=== PATIENT | male | born 1935 | race Asian ===

== ENCOUNTER 2023-04-15 17:36 | Inpatient (IN) | payer OTHER ==
[~2023-04-15] VITALS: Ht 165.1 cm; Wt 61.7 kg
[2023-04-15 17:43] VITALS: BP 137/95
--- NOTE | 2023-04-15 17:58 | NUR ---
Patient ambulated to bed 09 with steady/even gait.
--- NOTE | 2023-04-15 18:00 | NUR ---
87 y/o M BIB self from home c/o right head, right hip and leg pain s/p fall on 04/11/23. Patient A&Ox4, ambulatory, states ground level fall while standing up from bed and slipping on right foot. Pt states striking head to wooden frame. Denies blood thinners, LOC. Patient states head pain 9/10, sharp/intermittent, non-radiating. Worsens with coughing/sudden head movements. Denies OTC meds, dizziness, nausea, vomiting, chest pain. property assessment monitor on place. Bed locked in lowest position, side rails x 1. ALLERGY: IBUPROFEN PMH: HTN, HDL MEDS: ATENOLOL, LOVASTATIN
--- NOTE | 2023-04-15 19:35 | NUR ---
Report and transfer of care given to DARVIN Klein.
--- NOTE | 2023-04-15 19:49 | NUR ---
PATIENT UPDATED ON PLAN OF CARE AND PENDING DISCHARGE. UP AMBULATING TO RESTROOM WITHOUT ASSISTANCE,
[2023-04-15] MEDS ORDERED: ACET-10509 PO (21:01)
--- NOTE | 2023-04-15 21:25 | NUR ---
MD SPOKE WITH PATIENT NEUROLOGIST WHO STRONGLY ADVISED THE PATIENT TO REMAIN AT HOSPITAL TO BE ADMIT. MD DISCUSS WITH PATIENT WHO DECIDED TO REMAIN IN ER. CARES CONTINUE.
[2023-04-15 21:57] LABS: BASOPHILS % (AUTO) 0.7 % (0.0-2.0); EOSINOPHILS # (AUTO) 0.3 K/uL (0-0.4); EOSINOPHILS % (AUTO) 4.9 % (0.0-4.0); HEMATOCRIT 37.7 % (36-52); HEMOGLOBIN 12.4 g/dL (12.0-18.0); LYMPHOCYTES # (AUTO) 1.1 K/uL (2.0-11.5); LYMPHOCYTES % (AUTO) 18.9 % (20.5-51.1); MEAN CORPUSCULAR HEMOGLOBIN 29 pg (27-31); MEAN CORPUSCULAR HGB CONC 33 g/dL (33-37); MEAN CORPUSCULAR VOLUME 89.3 fL (80-94); MONOCYTES # (AUTO) 0.6 K/uL (0.8-1.0); MONOCYTES % (AUTO) 10.1 % (1.7-9.3); NEUTROPHILS # (AUTO) 3.7 K/uL (1.8-7.7); NEUTROPHILS % (AUTO) 65.4 % (42.2-75.2); PLATELET COUNT (AUTO) 193 K/uL (140-450); RED BLOOD CELL COUNT(AUTO) 4.22 MIL/uL (4.20-6.10); RED CELL DISTRIBUTION WIDTH 14.4 % (11.6-13.7); WHITE BLOOD COUNT (AUTO) 5.6 K/uL (4.8-10.8)
--- NOTE | 2023-04-15 22:06 | NUR ---
PT AMBULATING TO RESTROOM UNASSISTED
[2023-04-15 22:13] LABS: ALBUMIN 3.5 g/dL (3.4-5.0); ANION GAP 11.3 (8-16); ASPARTATE AMINOTRANSFERASE 29 U/L (15-37); CARBON DIOXIDE 28.8 mmol/L (21-32); CHLORIDE 104 mmol/L (98-107); GLUCOSE 104 mg/dL (74-106); POTASSIUM 4.1 mmol/L (3.5-5.1); SODIUM SERUM 140 mmol/L (136-145); TOTAL BILIRUBIN 0.3 mg/dL (0.0-1.0); UREA NITROGEN, BLOOD 23 mg/dL (7-18)
--- NOTE | 2023-04-15 22:20 | NUR ---
20G PLACED IN LAC
--- NOTE | 2023-04-15 23:18 | NUR ---
PATIENT TO RADIOLOGY VIA [facility]
--- NOTE | 2023-04-15 23:27 | NUR ---
PATIENT BACK FROM CT
--- NOTE | 2023-04-16 02:48 | NUR ---
SPOKE TO CORPORATE QUALITY ENGINEER TOM ABOUT PATIENT CURRENT STATUS/ HX. PATIENT PENDING TRANSFER TO HIGHER LEVEL OF CARE.
--- NOTE | 2023-04-16 04:28 | NUR ---
PT SPEAKING WITH TELENEURO PHSYCIAN AT THIS TIME.
[2023-04-16] MEDS ORDERED: ZOLPIDEM 5 MG TAB PO PRN (04:55)
[2023-04-16] MEDS ORDERED: ONDANSETRON 4 MG/2 ML VIAL IM/IVP PRN (04:55)
[2023-04-16] MEDS ORDERED: DOCUSATE SODIUM 100 MG GELCAP PO PRN (04:55)
[2023-04-16] MEDS ORDERED: POTASSIUM CHLORIDE 10 MEQ TABER PO PRN (04:55)
[2023-04-16] MEDS ORDERED: guaiFENesin DM 200/20 MG-10 ML 10 ML UDC PO PRN (04:55)
[2023-04-16] MEDS ORDERED: HYDROcodone/APAP 7.5/325 MG 1 TAB PO PRN (04:55)
--- NOTE | 2023-04-16 05:23 | NUR ---
[facility]UITY OF CARE.
[2023-04-16 05:30] VITALS: BP 117/75
--- NOTE | 2023-04-16 05:30 | NUR ---
PT TRANSPORTED FROM ER VIA GURNEY. RECEIVED REPORT FROM DARVIN RITCHIE FOR CONTINUITY OF CARE/ PT A/A/O. AMBULATORY. ABLE TO MAKE NEEDS KNOWN. RESPIRATIONS EVEN AND UNLABORED ON RA. DENIES PAIN. ATTACHED TO WATER/WASTEWATER ENGINEER. V/S TAKEN AND WITHIN NORMAL LIMITS. MRSA SWAB DONE AND SENT TO LAB. NPO EXCEPT MEDS. PT AWARE. NPO SIGN IN PLACE. IV SITE ON LAC, 20G STARTED WITH NS AT 60ML/HR. PT ORIENTED TO ROOM, UNIT AND ROUTINE. POC DISCUSSED. CALL LIGHT WITHIN REACH. SAFETY PRECAUTIONS IN PLACE.
--- NOTE | 2023-04-16 05:30 | NUR ---
Patient's Plan of Care was discussed and reviewed with ZACHARY IBRAHIM:
[2023-04-16] MEDS: NACL 0.9% 1,000 ML IV SCH ×2 (05:40→21:51)
--- NOTE | 2023-04-16 07:10 | NUR ---
GAVE BEDSIDE REPORT TO DARVIN SLATER FOR CONTINUITY OF CARE. PT IS STABLE.
--- NOTE | 2023-04-16 07:30 | NUR ---
RECEIVED REPORT FROM ASSISTANT PARALEGAL NURSE, POC DISCUSSED. PT CURRENTLY RESTING WITH CHEST RISING AND FALLING. NO ACUTE S/S OF DISTRESS. ALL SAFETY MEASURES IN PLACE. CALL LIGHT WITHIN REACH.
[2023-04-16 08:00] VITALS: BP 158/72
[2023-04-16] MEDS: ASPIRIN 325 MG TAB PO SCH (09:16)
[2023-04-16] MEDS: PANTOPRAZOLE 40 MG TABEC PO SCH (09:17)
--- NOTE | 2023-04-16 09:41 | NUR ---
DAUGHTER CALLED IN TO GET A STATUS UPDATE ON HER FATHER. I OBTAINED VERBAL CONSENT FROM PT TO DISCUSS STATUS WITH DAUGHTER. DAUGHTER WILL CALL PT DIRECTLY ON HIS CELL PHONE.
[2023-04-16 12:00] VITALS: BP 154/80
--- NOTE | 2023-04-16 12:13 | NUR ---
PT SON CALLED IN FOR STATUS. OBTAINED PERMISSION FROM PT TO RELEASE INFO TO SON NAMED FORREST KAUFFMAN.
--- NOTE | 2023-04-16 14:49 | NUR ---
PT GETTING EEG COMPLETED AT THIS TIME, UNABLE TO TALK DURING PROCEDURE TO ANSWER QUESTIONS FOR MRI SCREENING. WILL FOLLOW UP.
[2023-04-16 16:00] VITALS: BP 129/70
--- NOTE | 2023-04-16 16:36 | NUR ---
Order received for the patient to have an MRI of the brain. rigger supervisor spoke with LOREN Willson at [email or web address] ([phone]), authorization for MRI given ([id number]) and for [facility] transport ([id number]). Clinical packet and MRi screening form faxed to [facility], phone [phone], fax [phone], waiting for call back to schedule. Transport arranged with [facility] ([phone]), on will call, LOGAN. Addendum: 04/16/23 at 4508 by Mona Matute CM MRI order changed to include cervical spine, without contrast, [facility] notified, per Lulu authorization number will remain the same. New orders faxed to [facility]. Addendum: 04/17/23 at 08 by Mona Matute CM rigger supervisor attempted to reach the Nuclear Med department at [facility], informed by ball rolling machine operator that they do not schedule MRI's on the weekends. Message left for Nuclear Med and Radiology at [facility] asking if they can do the MRI today, attempted to reach [place] to schedule MRI, ball rolling machine operator states he doesn't think MRI's are scheduled on weekends, unable to reach anyone in Nuclear Med or Radiology or to leave a message. Addendum: 04/18/23 at 1158 by Magali Ruggiero RN DC PLANNING: PER DR JENNINGS MRI GOT CANCELLED AND CAN BE DONE OUT PATIENT FAXED TO [facility]. [facility] TO FOLLOW
--- NOTE | 2023-04-16 17:03 | NUR ---
SPOKE WITH DR VILLEDA, STATED TO DC THE DUPLICATE EEG ORDER. ALSO STATED TO CHANGE THE MRI TO CERVICAL SPINE AND BRAIN WITHOUT CONTRAST. VETERINARY SURGERY TECHNICIAN MADE AWARE, TORB ORDER PLACED.
[2023-04-16 17:38] LABS: PROTHROMBIN TIME 10.2 secs (10.8-13.4)
[2023-04-16 17:40] LABS: BASOPHILS % (AUTO) 0.3 % (0.0-2.0); EOSINOPHILS # (AUTO) 0.2 K/uL (0-0.4); EOSINOPHILS % (AUTO) 3.6 % (0.0-4.0); HEMATOCRIT 37.2 % (36-52); HEMOGLOBIN 12.4 g/dL (12.0-18.0); LYMPHOCYTES # (AUTO) 0.6 K/uL (2.0-11.5); LYMPHOCYTES % (AUTO) 14.3 % (20.5-51.1); MEAN CORPUSCULAR HEMOGLOBIN 30 pg (27-31); MEAN CORPUSCULAR HGB CONC 33 g/dL (33-37); MEAN CORPUSCULAR VOLUME 88.9 fL (80-94); MONOCYTES # (AUTO) 0.5 K/uL (0.8-1.0); MONOCYTES % (AUTO) 11.1 % (1.7-9.3); NEUTROPHILS % (AUTO) 70.7 % (42.2-75.2); PLATELET COUNT (AUTO) 185 K/uL (140-450); RED BLOOD CELL COUNT(AUTO) 4.19 MIL/uL (4.20-6.10); RED CELL DISTRIBUTION WIDTH 14.6 % (11.6-13.7); WHITE BLOOD COUNT (AUTO) 4.3 K/uL (4.8-10.8)
[2023-04-16 17:52] LABS: CARBON DIOXIDE 27.2 mmol/L (21-32); CHLORIDE 105 mmol/L (98-107); CREATININE 1.1 mg/dL (0.6-1.3); GLUCOSE 109 mg/dL (74-106); POTASSIUM 4.2 mmol/L (3.5-5.1); SODIUM SERUM 141 mmol/L (136-145); UREA NITROGEN, BLOOD 19 mg/dL (7-18)
[2023-04-16 18:04] LABS: MAGNESIUM 2.2 mg/dL (1.8-2.4); PHOSPHORUS 4.2 mg/dL (2.5-4.9)
--- NOTE | 2023-04-16 19:20 | NUR ---
RECEIVED PT FROM MORNING SHIFT NURSE. PT IS AOX4, AMBULATORY, ABLE TO FOLLOW COMMANDS AND ABLE TO VERBALIZE NEEDS. PT IS ON ROOM AIR AND ON CARDIAC DIET. PT HAS IV ON LEFT AC GAUGE 22, RUNNING WITH NS AT 60ML/HR. PT SKIN IS INTACT. PT DENIES PAIN AT THIS TIME. NO S/S OF RESPIRATORY DISTRESS NOTED. ALL SAFETY MEASURES IMPLEMENTED. BED IN LOW POSITION, BED WHEELS ON LOCK AND CALL LIGHT WITHIN REACH.
[2023-04-16 20:00] VITALS: BP 119/69
--- NOTE | 2023-04-16 22:00 | NUR ---
ASSISTED PT TO BATHROOM AND TAUGHT PT HOW TO PULL OUT AND PLUG IN THE CORD OF IV PUMP. PT UNDERSTAND UNDERSTANDING. NO COMPLAIN OF PAIN. NO S/S OF RESPIRATORY DISTRESS NOTED. ALL SAFETY MEASURES IMPLEMENTED. BED IN LOW POSITION, BED WHEELS ON LOCK AND CALL LIGHT WITHIN REACH.
[2023-04-17] VITALS: BP 133/83
--- NOTE | 2023-04-17 | NUR ---
PT IS ON SLEEP. CHEST RISE AND FALL SYMMETRICALLY NOTED. RESPIRATION IS EVEN AND UNLABORED. ALL SAFETY MEASURES IMPLEMENTED. BED IN LOW POSITION, BED WHEELS ON LOCK AND CALL LIGHT WITHIN REACH.
--- NOTE | 2023-04-17 02:00 | NUR ---
CHECKED THE PT, STILL ON SLEEP. CHEST RISE AND FALL SYMMETRICALLY NOTED. RESPIRATION IS EVEN AND UNLABORED. ALL SAFETY MEASURES IMPLEMENTED. BED IN LOW POSITION, BED WHEELS ON LOCK AND CALL LIGHT WITHIN REACH.
[2023-04-17 04:02] VITALS: BP 155/77
--- NOTE | 2023-04-17 04:10 | NUR ---
PT WAS GIVEN WARM BLANKET PER PT REQUEST. NO COMPLAIN OF PAIN. NO S/S OF RESPIRATORY DISTRESS. ALL SAFETY MEASURES IMPLEMENTED. BED IN LOW POSITION, BED WHEELS ON LOCK AND CALL LIGHT WITHIN REACH.
[2023-04-17 05:35] LABS: BASOPHILS % (AUTO) 0.5 % (0.0-2.0); EOSINOPHILS # (AUTO) 0.3 K/uL (0-0.4); EOSINOPHILS % (AUTO) 5.5 % (0.0-4.0); HEMATOCRIT 35.5 % (36-52); HEMOGLOBIN 11.8 g/dL (12.0-18.0); LYMPHOCYTES # (AUTO) 0.6 K/uL (2.0-11.5); LYMPHOCYTES % (AUTO) 12.7 % (20.5-51.1); MEAN CORPUSCULAR HEMOGLOBIN 29 pg (27-31); MEAN CORPUSCULAR HGB CONC 33 g/dL (33-37); MEAN CORPUSCULAR VOLUME 88.5 fL (80-94); MONOCYTES # (AUTO) 0.4 K/uL (0.8-1.0); MONOCYTES % (AUTO) 8.4 % (1.7-9.3); NEUTROPHILS # (AUTO) 3.6 K/uL (1.8-7.7); NEUTROPHILS % (AUTO) 72.9 % (42.2-75.2); PLATELET COUNT (AUTO) 159 K/uL (140-450); RED BLOOD CELL COUNT(AUTO) 4.01 MIL/uL (4.20-6.10); RED CELL DISTRIBUTION WIDTH 14.3 % (11.6-13.7); WHITE BLOOD COUNT (AUTO) 4.9 K/uL (4.8-10.8)
[2023-04-17 05:55] LABS: ANION GAP 13.3 (8-16); CARBON DIOXIDE 26.4 mmol/L (21-32); CHLORIDE 107 mmol/L (98-107); CREATININE 0.8 mg/dL (0.6-1.3); GLUCOSE 115 mg/dL (74-106); POTASSIUM 3.7 mmol/L (3.5-5.1); SODIUM SERUM 143 mmol/L (136-145); UREA NITROGEN, BLOOD 20 mg/dL (7-18)
--- NOTE | 2023-04-17 07:10 | NUR ---
PT IS STABLE. ENDORSED PT TO MORNING SHIFT NURSE FOR CONTINUITY OF CARE.
--- NOTE | 2023-04-17 07:32 | NUR ---
RECEIVED REPORT FROM RECEIVING TEAM MEMBER NURSEROMINA. PT STABLE IN BED ON ROOM AIR WITH CHEST RISING AND FALLING. ALL NIGHT EVENTS AND CHANGES IN POC DISCUSSED. ALL SAFETY MEASURES IN PLACE, CALL LIGHT WITHIN REACH.
[2023-04-17 08:00] VITALS: BP 155/74
[2023-04-17] MEDS: ASPIRIN 325 MG TAB PO SCH (08:50)
[2023-04-17] MEDS: PANTOPRAZOLE 40 MG TABEC PO SCH (08:50)
[2023-04-17] MEDS: ACETAMINOPHEN 325 MG TAB PO PRN ×2 (08:50→20:19)
[2023-04-17 12:00] VITALS: BP 142/66
[2023-04-17] MEDS: NACL 0.9% 1,000 ML IV SCH (14:49)
[2023-04-17 16:00] VITALS: BP 126/66
--- NOTE | 2023-04-17 18:21 | NUR ---
ROUNDED ON PT, SITTING UP ON THE SIDE OF THE BED EATING DINNER. REPORTS ALL NEEDS ARE BEING MET. ALL SAFETY MEASURES IN PLACE. NO S/S OF ACUTE DISTRESS.
--- NOTE | 2023-04-17 19:30 | NUR ---
RECEIVED PT FROM DAY SHIFT NURSE. PT IS AOX4,SITTING ON THE EDGE OF BED. PT IS ON ROOM AIR. PT HAS IV ON LEFT AC GAUGE 22, RUNNING WITH NS AT 60ML/HR. . PT COMPLAINS OF MILD HEADACHE. NO S/SX OF RESPIRATORY DISTRESS NOTED. POC DISCUSSED.ALL SAFETY MEASURES IN PLACE.CALL LIGHT WITHIN REACH.WILL CONTINUE TO MONITOR.
[2023-04-17 20:00] VITALS: BP 109/61
--- NOTE | 2023-04-17 20:19 | NUR ---
PT COMPLAINED OF MILD HEADACHE. PRN TYLENOL GIVEN. WILL CONTINUE TO MONITOR.
[2023-04-18] VITALS: BP 165/62
[2023-04-18 04:00] VITALS: BP 171/86
[2023-04-18] MEDS: ACETAMINOPHEN 325 MG TAB PO PRN (05:11)
[2023-04-18 06:51] LABS: BASOPHILS % (AUTO) 0.3 % (0.0-2.0); EOSINOPHILS # (AUTO) 0.3 K/uL (0-0.4); EOSINOPHILS % (AUTO) 6.6 % (0.0-4.0); HEMATOCRIT 34.5 % (36-52); HEMOGLOBIN 11.4 g/dL (12.0-18.0); LYMPHOCYTES # (AUTO) 0.6 K/uL (2.0-11.5); LYMPHOCYTES % (AUTO) 15.3 % (20.5-51.1); MEAN CORPUSCULAR HEMOGLOBIN 30 pg (27-31); MEAN CORPUSCULAR HGB CONC 33 g/dL (33-37); MEAN CORPUSCULAR VOLUME 88.9 fL (80-94); MONOCYTES # (AUTO) 0.3 K/uL (0.8-1.0); MONOCYTES % (AUTO) 8.2 % (1.7-9.3); NEUTROPHILS # (AUTO) 2.8 K/uL (1.8-7.7); NEUTROPHILS % (AUTO) 69.6 % (42.2-75.2); PLATELET COUNT (AUTO) 169 K/uL (140-450); RED BLOOD CELL COUNT(AUTO) 3.88 MIL/uL (4.20-6.10); RED CELL DISTRIBUTION WIDTH 14.6 % (11.6-13.7)
[2023-04-18] MEDS: NACL 0.9% 1,000 ML IV SCH (06:55)
[2023-04-18 06:59] LABS: ANION GAP 12.2 (8-16); CARBON DIOXIDE 26.4 mmol/L (21-32); CHLORIDE 108 mmol/L (98-107); CREATININE 0.9 mg/dL (0.6-1.3); GLUCOSE 106 mg/dL (74-106); POTASSIUM 3.6 mmol/L (3.5-5.1); SODIUM SERUM 143 mmol/L (136-145); UREA NITROGEN, BLOOD 17 mg/dL (7-18)
[2023-04-18 07:09] LABS: CHOL/HDL RATIO 4.4 (1-4.5)
--- NOTE | 2023-04-18 07:15 | NUR ---
RECEIVED PT FROM [facility] NURSE PRACTITIONER FOR CONTINUITY OF CARE. ALERT AND ORIENTED X 4. RESP. EVEN AND UNLABORED. ON ROOM AIR. NOT ANY DISTRESS NOTED. CALL LIGHT KEPT WITHIN REACH. PT WILL MONITOR CLOSELY.
[2023-04-18 08:00] VITALS: BP 163/79
--- NOTE | 2023-04-18 08:05 | NUR ---
BLOOD PRESSURE 163/79. DR. TOTH NOTIFIED, NO NEW ORDER AT THIS TIME.
[2023-04-18] MEDS: PANTOPRAZOLE 40 MG TABEC PO SCH (08:17)
[2023-04-18] MEDS: ASPIRIN 325 MG TAB PO SCH (08:17)
--- NOTE | 2023-04-18 08:17 | NUR ---
SCHEDULED MEDICATIONS GIVEN. TOLERATED WELL.
--- NOTE | 2023-04-18 08:57 | NUR ---
PATIENT HAS BEEN SCREENED AND CATEGORIZED LOW NUTRITION RISK. PATIENT WILL BE SEEN WITHIN 7 DAYS OF ADMISSION. 04/23/23 REVIEWED BY SOFÍA COLON RD
[2023-04-18] MEDS ORDERED: NIFEdipine 30 MG TABER PO SCH (09:24)
--- NOTE | 2023-04-18 10:48 | NUR ---
ADALAT PO WAS GIVEN. TOLERATED WELL.
[2023-04-18 12:00] VITALS: BP 147/79
--- NOTE | 2023-04-18 12:35 | NUR ---
SEEN BY DR. JENNINGS.
[2023-04-18] MEDS ORDERED: ASPI-1822 PO ×2 (13:28→14:25)
--- NOTE | 2023-04-18 14:50 | NUR ---
PT LEFT. DISCHARGE TO HOME. AMBULATORY. ALERT AND VERBALLY RESPONSIVE. RESP. EVEN AND UNLABORED. SKIN INTACT. ID BAND AND IV REMOVED. DISCHARGED PAPERWORK SIGNED AND DISCUSS BY PT. NO C/O PAIN OR DISCOMFORT. REMAINS STABLE.
--- NOTE | 2023-04-19 08:36 | NUR ---
RECEIVED ORDER FOR PATIENT TO GET OUTPATIENT MRI OF THE [facility] FOR HOME SAFETY EVAL. RECEIVED CALL FROM ABEBE AT [facility], MRI WAS APPROVED FOR [facility] AND [facility] WAS THE AGENCY THAT IS ACCEPTING PATIENT.
[2023-04-19] MEDS ORDERED: atenoloL 25 MG TAB PO SCH (09:00)
== END 2023-04-18 14:50 | disposition home health service (06) | DRG 93 ==
LOC: MED 17:36 → MMU 04-16 04:56 → MTU 04-17 22:55
PROVIDERS: ADMIT Student in an Organized Health Care Education/Training Program; ATTEND Student in an Organized Health Care Education/Training Program
PROC: 4A00X4Z Measurement of Central Nervous Electrical Activity, External Approach (ICD-10-PCS; principal; 2023-04-16)
DX: G96.08 Other cranial cerebrospinal fluid leak (principal); I10 Essential (primary) hypertension; E78.00 Pure hypercholesterolemia, unspecified; E11.9 Type 2 diabetes mellitus without complications; Z20.822 Contact with and (suspected) exposure to COVID-19; Z88.1 Allergy status to other antibiotic agents; Z79.899 Other long term (current) drug therapy; Z79.1 Long term (current) use of non-steroidal anti-inflammatories (NSAID)
CPT/HCPCS: 36415; 70450; 72170; 80048; 80053; 83735; 84100; 84484; 85025; 85610; 85651; 85730; 87081; 93005; 95816; 99291; Q9967

== ENCOUNTER 2023-05-10 10:46 | Inpatient (IN) | payer OTHER ==
[~2023-05-10] VITALS: Ht 167.6 cm; Wt 59.4 kg
[~2023-05-10 10:46] MED LIST: ACET-10509 PO; ASPI-1822 PO
[2023-05-10] MEDS ORDERED: POLYETHYLENE GLYCOL 17 GM/PKT PO ONE (11:00)
[2023-05-10] MEDS ORDERED: SODIUM PHOSPHATE 118 ML ENEM RC ONE (11:00)
[2023-05-10] MEDS ORDERED: NACL 0.9% 1,000 ML IV ONE (11:00)
[2023-05-10] MEDS ORDERED: DOCUSATE SOD/SENNA 50/8.6 MG 1 TAB PO PRN (11:00)
[2023-05-10] MEDS ORDERED: MAGNESIUM HYDROXIDE 2400 MG/30 ML UDC PO ONE (11:00)
[2023-05-10 11:08] VITALS: BP 122/70
[2023-05-10] MEDS ORDERED: DOXY-690 PO (11:13)
[2023-05-10] MEDS ORDERED: METR-435 PO (11:13)
[2023-05-10 11:19] LABS: BASOPHILS % (AUTO) 0.3 % (0.0-2.0); EOSINOPHILS # (AUTO) 0.1 K/uL (0-0.4); EOSINOPHILS % (AUTO) 0.8 % (0.0-4.0); HEMATOCRIT 33.4 % (36-52); HEMOGLOBIN 10.9 g/dL (12.0-18.0); LYMPHOCYTES # (AUTO) 0.6 K/uL (2.0-11.5); LYMPHOCYTES % (AUTO) 7.6 % (20.5-51.1); MEAN CORPUSCULAR HEMOGLOBIN 29 pg (27-31); MEAN CORPUSCULAR HGB CONC 33 g/dL (33-37); MEAN CORPUSCULAR VOLUME 87.4 fL (80-94); MONOCYTES # (AUTO) 0.5 K/uL (0.8-1.0); MONOCYTES % (AUTO) 6.3 % (1.7-9.3); NEUTROPHILS # (AUTO) 6.9 K/uL (1.8-7.7); PLATELET COUNT (AUTO) 221 K/uL (140-450); RED BLOOD CELL COUNT(AUTO) 3.82 MIL/uL (4.20-6.10); RED CELL DISTRIBUTION WIDTH 13.8 % (11.6-13.7); WHITE BLOOD COUNT (AUTO) 8.2 K/uL (4.8-10.8)
--- NOTE | 2023-05-10 11:36 | NUR ---
UNABLE TO PROVIDE URINE AT THIS TIME, PT URINATED ON EMS GURNEY
--- NOTE | 2023-05-10 11:40 | NUR ---
87 Y/O MALE BIBA FROM HOME C/O WEAKNESS AND CONSTIPATION X4 DAYS. PER EMS PT HAS BEEN UNABLE TO WALK UP STAIRS FOR " A WHILE NOW", TODAY PT SLID DOWN HIS CHAIR AND STATED THAT THEY WERE HAVING A HARD TIME GETTING UP. PER PT HE HAS BEEN CONSTIPATED X4DAYS. NO MEDICATION TAKEN FOR CONSTIPATION PMH: HTN, HDL
--- NOTE | 2023-05-10 11:44 | NUR ---
PER DR JOHNSON, GIVE ENEMA AFTER CT SCAN
--- NOTE | 2023-05-10 11:45 | NUR ---
TAKEN TO CT VIA NIRANJAN
[2023-05-10 11:52] LABS: ALBUMIN 3.1 g/dL (3.4-5.0); ASPARTATE AMINOTRANSFERASE 35 U/L (15-37); CARBON DIOXIDE 26.9 mmol/L (21-32); CHLORIDE 100 mmol/L (98-107); CREATININE 0.8 mg/dL (0.6-1.3); GLUCOSE 111 mg/dL (74-106); LIPASE 76 U/L (73-393); POTASSIUM 3.9 mmol/L (3.5-5.1); SODIUM SERUM 135 mmol/L (136-145); TOTAL BILIRUBIN 0.5 mg/dL (0.0-1.0); UREA NITROGEN, BLOOD 14 mg/dL (7-18)
--- NOTE | 2023-05-10 11:58 | NUR ---
RETURN FROM CT
--- NOTE | 2023-05-10 13:39 | NUR ---
MINIMAL AMOUNT OF STOOL NOTED IN DIAPER, PT CHANGED INTO A CLEAN DIAPER AND KEPT CLEAN AND DRY
[2023-05-10] MEDS ORDERED: ONDANSETRON 4 MG/2 ML VIAL IVP PRN (14:15)
[2023-05-10] MEDS ORDERED: ACETAMINOPHEN 325 MG TAB PO PRN (14:15)
[2023-05-10] MEDS ORDERED: HYDROcodone/APAP 7.5/325 MG 1 TAB PO PRN (14:15)
[2023-05-10] MEDS ORDERED: MAG SULF 2000 MG/WATER PREMIX 50 ML IV PRN (14:15)
[2023-05-10] MEDS ORDERED: POTASSIUM CHLORIDE 10 MEQ TABER PO PRN (14:15)
[2023-05-10] MEDS: NACL 0.9% 1,000 ML IV SCH (14:38)
--- NOTE | 2023-05-10 15:24 | NUR ---
PT REPOSITIONED IN BED, SAT UP, HOB ELEVATED
[2023-05-10 15:36] LABS: PROTHROMBIN TIME 10.7 secs (10.8-13.4)
[2023-05-10 15:42] LABS: FREE T4 (FREE THYROXINE) 1.18 ng/dL (0.76-1.46); MAGNESIUM 2.2 mg/dL (1.8-2.4); PHOSPHORUS 3.3 mg/dL (2.5-4.9); THYROID STIMULATING HORMONE 0.5 uIU/mL (0.34-3.74)
--- NOTE | 2023-05-10 16:39 | NUR ---
PT CHANGED INTO NEW GOWN AND DIAPER
--- NOTE | 2023-05-10 17:00 | NUR ---
Patient will be admitted to care of DR MORALES. Admited to MED SURG. Will go to room 121B. Belongings list completed. Report to ABBEY BOSTON.
--- NOTE | 2023-05-10 17:20 | NUR ---
RECEIVE REPORT FROM ER NURSE THAT PATIENT COME FROM HOME FOR CONSTIPATION AND GENERALIZED WEAKNESS THAT ADMIT UNDER CARE OF DR. MORALES FOR GENERAL WEAKNESS WITH CONSTIPATION X 4 DAYS. IN ER, NURSE GIVE COLACE AND OTHER STOOL SOFT AND ENEMA AND HAVE 2 BM IN ER. PATIMAL HAS HX OF HTN, HLD, DUODENAL ULCER, ALLERGY TO IBUPROFEN,, MANDARIN SPEAKING, AMBULATORY WITH ASSIST. INCONTINENT, CURRENT RUNNING NS @50ML/HR VIA LAC. NO ACUTE SKIN ISSUE. VITAL WITHIN PATIENT'S BASE LINE (T-P-R:97.2-95-20, BP: 153/78, O2 SAT: 99% IN RA) WILL CONTINUE TO MONITOR Addendum: 05/10/23 at 1953 by Tonia Motta RN ENDORSE PATIENT TO PM SHIFT NURSE AFTER RE-INSERT PIV AT L. FOREARM FOR INFUSING NS @50ML/HR. PATIENT ACTING HAVE CONI CONDITION IN THE EVENING
[2023-05-10 18:32] VITALS: BP 153/78
--- NOTE | 2023-05-10 19:30 | NUR ---
RECEIVED REPORT FROM DAY SHIFT NURSE JANET FOR CONTINUITY OF CARE. PATIENT IS CONFUSED, MANDARIN SPEAKING. PATIENT IS ON ROOM AIR, BREATHING IS NORMAL WITH SYMMETRICAL RISE AND FALL OF CHEST. WENT INTO PATIENT'S ROOM FOR REPORT AND NOTICED PATIENT HAD PULLED OUT IV FROM LAC. STOPPED IV AND GRABBED SUPPLIES. CLEANED PATIENT'S ARM AND APPLIED DRESSING TO LAC. DARVIN GONZALES INSERTED NEW IV, IS NOW A 22G LEFT FORE ARM, RUNNING NS AT 50. PATIENT IS LYING COMFORTABLY AND CALM IN BED IN SUPINE POSITION. BED IS IN LOWEST POSITION, WHEELS LOCKED, CALL LIGHT IN PLACE. WILL CONTINUE TO OBSERVE PATIENT.
[2023-05-10 20:00] VITALS: BP 124/55
[2023-05-10] MEDS: DOCUSATE SODIUM 100 MG GELCAP PO SCH (21:00)
--- NOTE | 2023-05-10 21:14 | NUR ---
PATIENT HAD NO DIET LISTED. MESSAGED GARAGE WORKER PHYSICIAN DR. HAMILTON FOR DIET. DR. HAMILTON RESPONDED STATING, "HOLD OFF FOR NOW". COLACE WAS NOT ADMINISTERED PO TO PATIENT. PATIENT IS SLEEPING, LYING SUPINE. BREATHING IS NORMAL WITH SYMMETRICAL RISE AND FALL OF CHEST. WILL CONTINUE TO OBSERVE PATIENT.
--- NOTE | 2023-05-11 00:11 | NUR ---
DR. HAMILTON MESSAGED BACK THAT PATIENT CAN HAVE A MECHANICAL SOFT DIET. ORDER WAS PUT IN.
--- NOTE | 2023-05-11 01:00 | NUR ---
LOOKED IN ON PATIENT. PATIENT IS SLEEPING; BREATHING IS NORMAL WITH SYMMETRICAL RISE AND FALL OF CHEST. IV IS RUNNING. WILL CONTINUE TO OBSERVE PATIENT.
[2023-05-11] MEDS: NACL 0.9% 1,000 ML IV SCH (02:11)
[2023-05-11 04:00] VITALS: BP 156/74
[2023-05-11 05:26] LABS: BASOPHILS % (AUTO) 0.4 % (0.0-2.0); EOSINOPHILS % (AUTO) 0.3 % (0.0-4.0); HEMOGLOBIN 11.1 g/dL (12.0-18.0); LYMPHOCYTES # (AUTO) 0.6 K/uL (2.0-11.5); LYMPHOCYTES % (AUTO) 6.8 % (20.5-51.1); MEAN CORPUSCULAR HEMOGLOBIN 29 pg (27-31); MEAN CORPUSCULAR HGB CONC 34 g/dL (33-37); MEAN CORPUSCULAR VOLUME 86.7 fL (80-94); MONOCYTES # (AUTO) 0.6 K/uL (0.8-1.0); MONOCYTES % (AUTO) 6.5 % (1.7-9.3); NEUTROPHILS # (AUTO) 7.6 K/uL (1.8-7.7); PLATELET COUNT (AUTO) 207 K/uL (140-450); RED BLOOD CELL COUNT(AUTO) 3.81 MIL/uL (4.20-6.10); WHITE BLOOD COUNT (AUTO) 8.8 K/uL (4.8-10.8)
[2023-05-11 06:18] LABS: MAGNESIUM 2.4 mg/dL (1.8-2.4); PHOSPHORUS 3.2 mg/dL (2.5-4.9)
[2023-05-11 06:21] LABS: ANION GAP 14.8 (8-16); CARBON DIOXIDE 24.9 mmol/L (21-32); CHLORIDE 103 mmol/L (98-107); CREATININE 0.6 mg/dL (0.6-1.3); GLUCOSE 112 mg/dL (74-106); POTASSIUM 3.7 mmol/L (3.5-5.1); SODIUM SERUM 139 mmol/L (136-145); UREA NITROGEN, BLOOD 11 mg/dL (7-18)
--- NOTE | 2023-05-11 06:47 | NUR ---
PATIENT HAD VOIDED. WAS CLEANED AND CHANGED WITH THE ASSISTANCE OF NURSE SHADE. NEW BEDDING AND COVERS WERE PLACED ON BED. ATTEMPTED TO PUT GOWN ON PATIENT, PATIENT WOULD NOT WEAR; PATIENT IS WEARING NEW CHUCKS DIAPER. COVERED PATIENT UP WITH BLANKETS, WILL CONTINUE TO OBSERVE PATIENT.
--- NOTE | 2023-05-11 07:35 | NUR ---
ENDORSED TO DAY SHIFT NURSE JANET FOR CONTINUITY OF CARE. PATIENT IS STABLE.
[2023-05-11 08:00] VITALS: BP 161/73
--- NOTE | 2023-05-11 08:45 | NUR ---
PATIENT HAS BEEN SCREENED AND CATEGORIZED MODERATE NUTRITION RISK. PATIENT WILL BE SEEN WITHIN 3-5 DAYS OF ADMISSION. 05/13/23-05/15/[address]
[2023-05-11] MEDS: PANTOPRAZOLE 40 MG INJ VIAL IVP SCH (09:00)
--- NOTE | 2023-05-11 09:04 | NUR ---
DC PLANNIN YRS OLD MALE PATIENT WAS ADMITTED FROM HOME WITH A DX OF GENERALIZE WEAKNESS , CONSTIPATION. PATIENT HAS A HX OF HTN, HLD, AND DUODENAL ULCER. CT ABD/PELVIS SHOWED BIBASILAR PLEURAL THICKENING ,NO BOWEL OBSTRUCTION, ADMINISTERED IVF, IVP PROTONIX AND CONTINUED HOME MEDS. CONSULTED WITH GI. DC PLAN TO GO HOME WHEN STABLE. CM TO FOLLOW Addendum: 05/11/23 at 1702 by Magali Ruggiero RN DC PLANNING: PER FAMILY REQUEST TRANSFER TO [facility], CALLED [facility] LEFT A MESSAGE FOR ALEXI, AND FAXED TO [facility] AND SPOKE WITH ABDON ROWE PROVIDE ALL THE INFO AND INCLUDING DR HAMILTON'S NUMBER FOR PER TO [facility] AND ABDON REED # TO FOLLOW. NOTIFIED PT'S SON. CM TO FOLLOW Addendum: 05/12/23 at 1138 by DENIS RIZZO CM RECEIVED ORDER FOR PATIENT TO GO TO [facility] FOR REHAB. FAXED ALL PAPERWORK TO [facility] AND [facility]. RECEIVED CALL FROM AMY AT [facility] WHO IS DENIED TRANSFER TO [facility] FOR REHAB. Addendum: 05/12/23 at 1355 by Magali Ruggiero RN DC PLANNING: RECEIVED A CALL FROM [facility] SPOKE WITH JAE STATED DR SEYMOUR ACCEPTED PATIENT AND NEEDS AUTHORIZATION. CM CALLED [facility] SPOKE WITH ALEXI STATED [facility] INDUSTRIAL TECHNOLOGY TEACHER DENIED THE TRANSFER WELL CASA MARY JANE. PATIENT HAS NO CRITERIA FOR TRANSFER [facility] WILL APPROVE SNF VS HOME HEALTH. CM SPOKE WITH PT'S SON AND EXPLAIN THE INSURANCE DECISION. PT'S SON AGREED AND PREFERRED TO TAKE HIM HOME. CM TO FOLLOW Addendum: 05/13/23 at 1239 by Magali Ruggiero RN LATE ENTRY 05/12/23 1630 CM SPOKE WITH PT'S DAUGHTER MARCY KAUFFMAN ON SPEAKER PHONE AND PT'S SON FORREST IN PT'S ROOM DISCUSSED THE DC PLAN. BOTH AGREED THAT THEIR MOM CAN NOT TAKE CARE OF HIM. FORREST LIVES IN [place] AND DAUGHTER LIVES IN [place] [facility] AND REQUESTED TO SEND HIM TO SNF. EVENTUALLY THE PLAN IS TO TAKE BOTH PARENTS TO HIM BUT FOR NOW AGREED WITH SNF PLACEMENT. CM FAXED TO [facility]. CM TO FOLLOW Addendum: 05/13/23 at 1241 by Magali Ruggiero RN DC PLANNING: RECEIVED A CALL FROM ALEXI AT [facility] STATED INSURANCE APPROVE THE SNF PLACEMENT. LOREN SPOKE WITH FORREST [place], LORELEI BARRAGAN AND NAS. PER FORREST PREFERRED TO BE CLOSED TO THE AREA FOR HIS MOM TO VISIT AND OK WITH LORELEI BARRAGAN. Addendum: 05/13/23 at 1248 by Magali Ruggiero RN DC PLANNING: RECEIVED A CALL FROM TALIA AT [facility] STATED ACCEPTED PATIENT CAN GO TO ROOM [address] ACCE[address] DR JOSHI # TO GIVE REPORT [phone]. [facility] PROVIDE THE AUTH FOR [facility] [id number] ARRANGED TRANSPORT WITH [facility] PICK TIME 3PM NOTIFIED COOKIE FERGUSON CM TO FOLLOW Addendum: 05/13/23 at 1432 by DENIS RIZZO CM RECEIVED ORDER FOR PATIENT TO GO TO SNF. FAXED ALL PAPERWORK TO [facility] AND [facility] LOCATED AT [address] [facility] [id number]. PATIENT WAS ACCEPTED AND WILL BE GOING TO ROOM 221-[address] UNDER DR JOSHI. TRANSPORTATION WAS UNABLE TO BE DONE WITH [facility]. SPOKE WITH [facility] WHO GAVE ME [facility] WHO WAS ABLE TO SETUP A [address] CHIEF DESIGN TIME. CALLED SON FORREST AND WAS LEFT A VOICE MAIL REGARDING THE ABOVE INFORMATION. NURSE JOHN AWARE OF THE ABOVE INFO.
[2023-05-11] MEDS: DOCUSATE SODIUM 100 MG GELCAP PO SCH ×2 (11:03→20:31)
[2023-05-11] MEDS: ASPIRIN 81 MG TAB.CHEW PO SCH (11:03)
--- NOTE | 2023-05-11 13:50 | NUR ---
05/11/23 RD INITIAL ASSESSMENT COMPLETED PLEASE REFER TO NUTRITION ASSESSMENT UNDER CARE ACTIVITY FOR ESTIMATED NUTRITIONAL NEEDS. 1. RD RECOMMENDS CONTINUING MECHANICAL SOFT DIET AND DIET TOLERATED AND ADD CCHO DIET. 2. RD RECOMMENDS GLUCERNA BID DUE TO POOR PO INTAKE AND NUTRIENT INTAKE. THIS WILL PROVIDE 440 CALORIES AND 20 GRAMS OF PROTEIN. 3. RD TO FOLLOW-UP 3-5 DAYS, MODERATE RISK ZOFIA CAZARES RD
[2023-05-11 16:00] VITALS: BP 165/71
--- NOTE | 2023-05-11 16:45 | NUR ---
PATIENT'S NEXT KIN (SPOUSE AND SON COME TO VISIT PATIENT AND INF ROM NURSE THAT PATIENT HAD VISIT [facility] ABOUT 30 DAYS AGO D/T FELL & HURT HEAD DURING WORK OUT IN GYM. PER SON, FORREST KAUFFMAN, PATIENT BECOME WEAK AT BILATERAL LOWER EXTREMITIES; THEREFORE, PATIENT'S PRIMARY CARE PROVIDER ORDERED MRI ABOUT 5 DAYS AGO AND GET A NOT SIGNIFICANT TEST RESULT. PATIENT HAS HTN HX, MEDICATION FOR SBP OVER 160 IS ORDERED. WILL CONTINUE TO MONITOR
[2023-05-11] MEDS ORDERED: hydrALAZINE 20 MG/ML VIAL IVP PRN (19:00)
--- NOTE | 2023-05-11 19:30 | NUR ---
ENDORSE PATIENT TO PM SHIFT NURSE WHILE IV NS INFUSING @50ML VIA L. FOREARM. PEND FOR NEW ORDER BP MEDS AVAILABLE
[2023-05-11 20:00] VITALS: BP 159/81
[2023-05-11] MEDS: lisinopriL 20 MG TAB PO SCH (20:31)
[2023-05-11 20:45] LABS: APPEARANCE,URINE CLEAR (CLEAR); BILIRUBIN,URINE NEGATIVE (NEGATIVE); BLOOD, URINE NEGATIVE (NEGATIVE); COLOR,URINE YELLOW (YELLOW); LEUKOCYTE ESTERASE ,URINE NEGATIVE (NEGATIVE); NITRITE, URINE NEGATIVE (NEGATIVE); UGLUCOSE TRACE (NEGATIVE)
[2023-05-12 05:25] LABS: BASOPHILS % (AUTO) 0.6 % (0.0-2.0); EOSINOPHILS # (AUTO) 0.1 K/uL (0-0.4); EOSINOPHILS % (AUTO) 1.5 % (0.0-4.0); HEMATOCRIT 31.4 % (36-52); HEMOGLOBIN 10.6 g/dL (12.0-18.0); LYMPHOCYTES # (AUTO) 0.6 K/uL (2.0-11.5); LYMPHOCYTES % (AUTO) 7.9 % (20.5-51.1); MEAN CORPUSCULAR HEMOGLOBIN 29 pg (27-31); MEAN CORPUSCULAR HGB CONC 34 g/dL (33-37); MONOCYTES # (AUTO) 0.7 K/uL (0.8-1.0); MONOCYTES % (AUTO) 8.8 % (1.7-9.3); NEUTROPHILS # (AUTO) 6.5 K/uL (1.8-7.7); NEUTROPHILS % (AUTO) 81.2 % (42.2-75.2); PLATELET COUNT (AUTO) 226 K/uL (140-450); RED BLOOD CELL COUNT(AUTO) 3.66 MIL/uL (4.20-6.10)
[2023-05-12 05:39] LABS: ANION GAP 10.7 (8-16); CARBON DIOXIDE 27.8 mmol/L (21-32); CHLORIDE 103 mmol/L (98-107); CREATININE 0.7 mg/dL (0.6-1.3); GLUCOSE 114 mg/dL (74-106); POTASSIUM 3.5 mmol/L (3.5-5.1); SODIUM SERUM 138 mmol/L (136-145); UREA NITROGEN, BLOOD 14 mg/dL (7-18)
[2023-05-12 05:42] LABS: MAGNESIUM 2.2 mg/dL (1.8-2.4); PHOSPHORUS 3.4 mg/dL (2.5-4.9)
[2023-05-12] MEDS: NACL 0.9% 1,000 ML IV SCH (06:12)
[2023-05-12 08:00] VITALS: BP 156/82
[2023-05-12] MEDS: ASPIRIN 81 MG TAB.CHEW PO SCH (09:59)
[2023-05-12] MEDS: lisinopriL 20 MG TAB PO SCH (09:59)
[2023-05-12] MEDS: PANTOPRAZOLE 40 MG INJ VIAL IVP SCH (09:59)
[2023-05-12] MEDS: DOCUSATE SODIUM 100 MG GELCAP PO SCH ×2 (10:00→20:48)
[2023-05-12] MEDS ORDERED: SODIUM PHOSPHATE 118 ML ENEM RC SCH (13:00)
[2023-05-12 16:00] VITALS: BP 143/82
--- NOTE | 2023-05-12 16:10 | NUR ---
PHYSICAL THERAPY CO-SIGN The Physical Therapy Progress Notes documented by Fire Technology Instructor have been reviewed. Reviewed/Co-Signed by: Mona Ness PT Documentation Done by:TONY GARCIA PROPERTY TECHNICIAN Addendum: 05/12/23 at 1611 by Mona Ness PT Amended: Links added.
--- NOTE | 2023-05-12 19:42 | NUR ---
ENDORSED TO NIGHTSHIFT NURSE FOR CONTINUITY OF CARE. PT RESTING IN BED, AWAKE, STABLE, NO SIGNS OF DISTRESS, NO REPORTS OF PAIN/DISCOMFORT. FAMILY AT BEDSIDE FEEDING PT. CALL LIGHT WITHIN REACH.
[2023-05-13] MEDS: NACL 0.9% 1,000 ML IV SCH (02:10)
[2023-05-13 04:00] VITALS: BP 148/71
[2023-05-13 05:37] LABS: BASOPHILS % (AUTO) 0.4 % (0.0-2.0); EOSINOPHILS # (AUTO) 0.2 K/uL (0-0.4); EOSINOPHILS % (AUTO) 3.2 % (0.0-4.0); HEMATOCRIT 30.7 % (36-52); HEMOGLOBIN 10.4 g/dL (12.0-18.0); LYMPHOCYTES # (AUTO) 0.8 K/uL (2.0-11.5); LYMPHOCYTES % (AUTO) 9.9 % (20.5-51.1); MEAN CORPUSCULAR HEMOGLOBIN 29 pg (27-31); MEAN CORPUSCULAR HGB CONC 34 g/dL (33-37); MEAN CORPUSCULAR VOLUME 86.3 fL (80-94); MONOCYTES # (AUTO) 0.7 K/uL (0.8-1.0); MONOCYTES % (AUTO) 9.3 % (1.7-9.3); NEUTROPHILS # (AUTO) 5.9 K/uL (1.8-7.7); NEUTROPHILS % (AUTO) 77.2 % (42.2-75.2); PLATELET COUNT (AUTO) 242 K/uL (140-450); RED BLOOD CELL COUNT(AUTO) 3.55 MIL/uL (4.20-6.10); RED CELL DISTRIBUTION WIDTH 14.1 % (11.6-13.7); WHITE BLOOD COUNT (AUTO) 7.6 K/uL (4.8-10.8)
[2023-05-13 06:09] LABS: MAGNESIUM 2.2 mg/dL (1.8-2.4); PHOSPHORUS 4.1 mg/dL (2.5-4.9)
[2023-05-13 08:00] VITALS: BP 147/67
[2023-05-13 08:28] LABS: ANION GAP 14.8 (8-16); CARBON DIOXIDE 24.8 mmol/L (21-32); CHLORIDE 102 mmol/L (98-107); CREATININE 0.7 mg/dL (0.6-1.3); GLUCOSE 110 mg/dL (74-106); POTASSIUM 3.6 mmol/L (3.5-5.1); SODIUM SERUM 138 mmol/L (136-145); UREA NITROGEN, BLOOD 16 mg/dL (7-18)
[2023-05-13] MEDS: ASPIRIN 81 MG TAB.CHEW PO SCH (08:46)
[2023-05-13] MEDS: lisinopriL 20 MG TAB PO SCH (08:46)
[2023-05-13] MEDS: DOCUSATE SODIUM 100 MG GELCAP PO SCH (08:46)
[2023-05-13] MEDS: PANTOPRAZOLE 40 MG INJ VIAL IVP SCH (08:47)
[2023-05-13 16:00] VITALS: BP 122/70
--- NOTE | 2023-05-13 16:10 | NUR ---
HANDOFF WITH YAMILA AT [facility] [place] [facility] FOR PATIENT TRANSFER TODAY TO ROOM 221B.
--- NOTE | 2023-05-13 18:58 | NUR ---
[facility] CALL REGARDING CANCELATION OF TRANSFER DUE TO BEING UNABLE TO ACCOMMODATE TRANSFER.
--- NOTE | 2023-05-13 19:14 | NUR ---
Handoff with night team registered nurseLalito.
--- NOTE | 2023-05-13 21:12 | NUR ---
pt was picked up by [facility]. pt is stable.
== END 2023-05-13 21:18 | DRG 871 ==
LOC: MED 10:46 → MMU 14:21 → MTU 16:21
DX: A41.9 Sepsis, unspecified organism (principal); G93.41 Metabolic encephalopathy; J18.9 Pneumonia, unspecified organism; E44.1 Mild protein-calorie malnutrition; E87.1 Hypo-osmolality and hyponatremia; D63.8 Anemia in other chronic diseases classified elsewhere; E11.9 Type 2 diabetes mellitus without complications; I10 Essential (primary) hypertension; Z20.822 Contact with and (suspected) exposure to COVID-19; R41.82 Altered mental status, unspecified; Z68.21 Body mass index [BMI] 21.0-21.9, adult; Z88.6 Allergy status to analgesic agent
CPT/HCPCS: 36415; 71045; 72131; 73502; 80048; 80053; 81003; 82140; 82150; 83036; 83605; 83690; 83735; 83880; 84100; 84439; 84443; 84484; 85025; 85610; 85730; 87081; 93005; 96360; 97110; 97112; 97116; 97530; 99285; C9113; J0696; J1644; J7060